=== PATIENT | female | born 1995 | race Caucasian/White ===

== ENCOUNTER 2023-09-07 22:04 | Emergency (ER) | payer MEDICAID ==
[~2023-09-07] VITALS: Ht 165.1 cm; Wt 70.0 kg
[2023-09-07 22:13] VITALS: BP 125/69; PULSE 62; RESP 16; TEMP 98; O2SAT 99
== END 2023-09-08 02:56 | disposition left against medical advice (07) ==
LOC: ER 22:05
DX: S91.311A Laceration without foreign body, right foot, initial encounter (principal); Z53.21 Procedure and treatment not carried out due to patient leaving prior to being seen by health care provider; X58.XXXA Exposure to other specified factors, initial encounter; Y93.89 Activity, other specified; Y92.89 Other specified places as the place of occurrence of the external cause; Y99.8 Other external cause status
CPT/HCPCS: 99281